=== PATIENT | female | born 1985 | race Caucasian/White ===

== ENCOUNTER 2017-07-04 13:38 | Outpatient (CLI) | payer OTHER ==
--- NOTE | 2017-07-04 15:08 | ULT ---
OB ULTRASOUND AND BIOPHYSICAL PROFILE: HISTORY: female with hypertension. TECHNIQUE: Multiplanar, mendiola scale, and color Doppler images were obtained in a transabdominal ultrasound. A biophysical profile was also performed. FINDINGS: There is a single live intrauterine with heart rate of 144 b.p.m. A survey was perfo rmed which was unremarkable. The head, intracranial structures, heart, stomach, kidneys, umbilical c ord, umbilical cord insertion, bladder, spine, face, and extremities were normal in appearance. Marybeth mated weight is 1562 gm. Estimated age of the fetus based off today's examination is 30 weeks 5 days. The following measurements were taken and dates based off these measurements are as follows. BPD 7.70 cm, 30 weeks 6 days HC 28.51 cm, 31 weeks 2 days AC 26.44 cm, 30 weeks 4 days FL 5.65 cm, 29 weeks 5 days The placenta is posterior in location. There is no evidence of placenta previa. The inferior tip of the placenta is approximately 3.7 cm from the internal os. The cervix is normal in length. LAYLA is 7.8 cm, which is normal. A biophysical profile was performed. The fetus scored 8 of 8, which is nor mal. IMPRESSION: 1. Single live intrauterine with estimated age of 30 weeks 5 days. 2. Normal biophysical profile. POS: [facility]
== END 2017-07-04 13:39 | disposition home or self-care (01) ==
LOC: ULT 13:38
PROVIDERS: ATTEND Family Medicine
DX: O13.2 Gestational [pregnancy-induced] hypertension without significant proteinuria, second trimester (principal); Z3A.30 30 weeks gestation of pregnancy
CPT/HCPCS: 76805; 76819

== ENCOUNTER 2017-07-11 08:55 | Day surgery (SDC) | payer OTHER ==
[2017-07-11 09:17] VITALS: BMI 38.9
[2017-07-11] MEDS ORDERED: Betamet Acet/Betamet Na Ph 30 MG/5 ML VIAL IM SCH (09:45)
== END 2017-07-11 10:10 | disposition home or self-care (01) ==
LOC: L&D/OP 08:55
PROVIDERS: ATTEND Family Medicine
DX: O10.919 Unspecified pre-existing hypertension complicating pregnancy, unspecified trimester (principal); Z3A.00 Weeks of gestation of pregnancy not specified; Z79.82 Long term (current) use of aspirin; Z79.899 Other long term (current) drug therapy; Z91.041 Radiographic dye allergy status
CPT/HCPCS: 96372

== ENCOUNTER 2017-07-12 09:01 | Day surgery (SDC) | payer OTHER ==
[2017-07-12 09:31] VITALS: BMI 38.9
[2017-07-12 09:32] VITALS: BP 144/77; TEMP 97.6
[2017-07-12] MEDS ORDERED: Betamet Acet/Betamet Na Ph 30 MG/5 ML VIAL IM SCH (10:30)
== END 2017-07-12 09:55 | disposition home or self-care (01) ==
LOC: L&D/OP 09:01
PROVIDERS: ATTEND Family Medicine
DX: Z34.80 Encounter for supervision of other normal pregnancy, unspecified trimester (principal); Z91.041 Radiographic dye allergy status

== ENCOUNTER 2017-08-23 10:35 | Inpatient (IN) | payer OTHER ==
[2017-08-24 06:30] VITALS: BMI 41.1
[2017-08-24] MEDS ORDERED: Promethazine HCl 25 MG/ML VIAL IM PRN (06:45)
[2017-08-24] MEDS ORDERED: Zolpidem Tartrate 5 MG TAB PO PRN (06:45)
[2017-08-24] MEDS ORDERED: Lidocaine 1% (PF) 30 ML VIAL SC PRN (06:45)
[2017-08-24] MEDS ORDERED: Acetaminophen/Codeine 30-300mg Tablet PO PRN ×2 (06:45→23:17)
[2017-08-24] MEDS ORDERED: Ibuprofen 800 MG TAB PO PRN (06:45)
[2017-08-24] MEDS ORDERED: Acetaminophen 500 MG TAB PO PRN (06:45)
[2017-08-24] MEDS ORDERED: LR / Pitocin 40 units/1000 ml 1,000 ML IV PRN (06:45)
[2017-08-24] MEDS ORDERED: Misoprostol 200 MCG TAB PR PRN (06:45)
[2017-08-24] MEDS ORDERED: HYDROcodone/Acetaminophen 5/325 mg Tablet PO PRN ×2 (06:45→23:17)
[2017-08-24] MEDS ORDERED: LR 500 ML/Oxytocin 10 units 500 ML IV SCH ×2 (06:45)
[2017-08-24] MEDS ORDERED: Ondansetron HCl/PF 4 MG/2 ML Vial IVP PRN ×2 (06:45→23:17)
[2017-08-24] MEDS: Lactated Ringer's 1,000 ML IV SCH ×4 (07:10→19:00)
[2017-08-24 07:24] LABS: Hemoglobin 11.5 g/dL (12.0-16.0); Mean Corpuscular HGB CONC 35.2 g/dL (32.0-36.0); Mean Corpuscular Hemoglobin 31.3 pg (27.0-31.0); Mean Corpuscular Volume 89.1 fl (81.0-99.0); Mean Platelet Volume 6.9 fL (7.4-10.4); Platelet Count 313 thou/uL (130-400); RBC Distribution Width 12.4 % (11.5-14.5); Red Blood Cell (RBC) Count 3.66 mill/uL (4.20-5.40)
[2017-08-24 07:58] LABS: Syphilis Antibody Nonreactive (Nonreactive); Syphilis Antibody Index 0.03 S/CO (<1.00 Non-Reactive)
[2017-08-24 07:59] LABS: HBSAg Index 0.14 S/CO (0-0.99); Hep B Surf Ag Non-Reactive S/CO (NonReactive)
[2017-08-24] MEDS ORDERED: DISCONTINUE ALL PREVIOUS NARCOTICS FS SCH (08:45)
[2017-08-24] MEDS ORDERED: Bupivacaine 0.5% 20 ML, Fentanyl 400 MCG in Sodium Chloride 0.9% 72 ML EPIDURAL SCH ×3 (08:45→17:45)
[2017-08-24] MEDS ORDERED: Naloxone HCl 0.4 mg/ml Vial IVP PRN ×2 (17:23)
[2017-08-24] MEDS ORDERED: Lactated Ringer's 500 ML IV PRN (17:23)
[2017-08-24] MEDS ORDERED: Eucerin (Mineral Oil/Petrolatum,White) 30 gm Jar TOP PRN (17:23)
[2017-08-24] MEDS ORDERED: ePHEDrine/0.9% NaCl/PF SYRINGE 50 mg/10 ml SLOW IVP PRN (17:23)
[2017-08-24] MEDS ORDERED: Fentanyl 4mcg/Marcaine 0.1% Cassette 100 ML EPIDURAL SCH (17:30)
[2017-08-24] MEDS ORDERED: Communication Order-Pharmacy FS SCH (17:30)
[2017-08-24] MEDS ORDERED: Lidocaine 1% (PF) 30 ML VIAL ONE (22:06)
[2017-08-24] MEDS ORDERED: Preparation H Ointment 28 GM TUBE PR PRN (23:17)
[2017-08-24] MEDS ORDERED: Lanolin Ointment 7 GM TUBE TOP PRN (23:17)
[2017-08-24] MEDS ORDERED: Milk Of Magnesia 30 ML UDCUP PO PRN (23:17)
[2017-08-24] MEDS ORDERED: diphenhydrAMINE 25 MG CAP PO PRN (23:17)
[2017-08-24] MEDS ORDERED: Bisacodyl 10 MG SUPP PR PRN (23:17)
[2017-08-24] MEDS ORDERED: LR / Pitocin 40 units/1000 ml 1,000 ML IV SCH (23:17)
[2017-08-24] MEDS ORDERED: Benzocaine/Menthol 20-0.5% 60 ML CAN TOP PRN (23:17)
[2017-08-24] MEDS ORDERED: Labetalol 100 MG TAB PO SCH (23:45)
[2017-08-25 05:47] LABS: Hemoglobin 11.6 g/dL (12.0-16.0); Mean Corpuscular Hemoglobin 30.7 pg (27.0-31.0); Mean Corpuscular Volume 87.7 fl (81.0-99.0); Mean Platelet Volume 6.7 fL (7.4-10.4); Platelet Count 307 thou/uL (130-400); RBC Distribution Width 12.5 % (11.5-14.5); Red Blood Cell (RBC) Count 3.79 mill/uL (4.20-5.40); White Blood Cell (WBC) Count 18.3 thou/uL (4.8-10.8)
[2017-08-25] MEDS: Ibuprofen 800 MG TAB PO SCH ×3 (05:58→21:26)
[2017-08-25] MEDS: Ferrous Sulfate 325 MG TAB PO SCH ×2 (09:05→18:11)
[2017-08-25] MEDS: Docusate Calcium (SURFAK) 240 MG CAP PO SCH ×2 (09:07→21:25)
[2017-08-25] MEDS: Labetalol 100 MG TAB PO SCH ×2 (09:07→21:25)
[2017-08-25] MEDS: Prenatal Vitamin 1 TAB PO SCH (09:07)
[2017-08-26] MEDS: Ibuprofen 800 MG TAB PO SCH (06:30)
[2017-08-26 08:44] VITALS: BP 137/77; TEMP 97.8
[2017-08-26] MEDS: Ferrous Sulfate 325 MG TAB PO SCH (10:01)
[2017-08-26] MEDS: Docusate Calcium (SURFAK) 240 MG CAP PO SCH (10:01)
[2017-08-26] MEDS: Labetalol 100 MG TAB PO SCH (10:02)
[2017-08-26] MEDS: Prenatal Vitamin 1 TAB PO SCH (10:02)
== END 2017-08-26 11:30 | disposition home or self-care (01) | DRG 774 ==
LOC: L&D 08-24 05:42 → 3SW 08-25 01:04
PROVIDERS: ADMIT Family Medicine; ATTEND Family Medicine
PROC: 10E0XZZ Delivery of Products of Conception, External Approach (ICD-10-PCS; principal; 2017-08-24)
PROC: 3E033VJ Introduction of Other Hormone into Peripheral Vein, Percutaneous Approach (ICD-10-PCS; 2017-08-24)
PROC: 10907ZC Drainage of Amniotic Fluid, Therapeutic from Products of Conception, Via Natural or Artificial Opening (ICD-10-PCS; 2017-08-24)
DX: O10.92 Unspecified pre-existing hypertension complicating childbirth (principal); Z37.0 Single live birth; Z3A.38 38 weeks gestation of pregnancy
CPT/HCPCS: 36415; 51702; 85027; 86780; 87340; C1726; J0595; J2001; J3010; J3490; J7050; J7120

== ENCOUNTER 2020-04-03 14:21 | Outpatient (CLI) | payer BC ==
--- NOTE | 2020-04-03 15:13 | MMO ---
Bilateral MAMMO Bilat Diag [facility]. CLINICAL HISTORY: Patient is 35 years old and is seen for diagnostic exam and lump or thickening in the upper-outer region of the left breast. The patient has the following family history of breast cancer: mother, malignant (generic). The patient has no personal history of cancer. VIEWS: The views performed were: bilateral craniocaudal with tomosynthesis; bilateral mediolateral oblique with tomosynthesis; and bilateral mediolateral with tomosynthesis. FILMS COMPARED: The present examination has been compared to a prior imaging study performed at [facility] on 04/03/2020. This study has been interpreted with the assistance of computer-aided detection. MAMMOGRAM FINDINGS: The breasts are heterogeneously dense, which could obscure a lesion on mammography. Finding 1: No mammographic or ultrasound finding to account for the palpable finding IN THEUPPER OUTER LT BREAST. Finding 2: There are benign appearing densities seen in both breasts. There are no suspicious masses, suspicious calcifications, or new areas of architectural distortion. IMPRESSION: THERE IS NO MAMMOGRAPHIC EVIDENCE OF MALIGNANCY. A ROUTINE FOLLOW-UP MAMMOGRAM AT AGE 42 IS RECOMMENDED. THE RESULTS OF THIS EXAM WERE SENT TO THE PATIENT. ACR BI-RADS Category 2 - Benign finding MAMMOGRAPHY NOTE: 1. A negative mammogram report should not delay a biopsy if a dominant of clinically suspicious mass is present. 2. Approximately 10% to 15% of breast cancers are not detected by mammography. 3. Adenosis and dense breasts may obscure an underlying neoplasm. Reported by: GUERRERO BLACKWOOD MD Electonically Signed: [id number]
--- NOTE | 2020-04-03 16:20 | ULT ---
EXAM: LEFT BREAST ULTRASOUND: 04/03/20 HISTORY: Patient presents with a palpable finding between the 12 and 1 o'clock position. There is some asymmetric echogenic glandular tissue in this region. No solid or cystic mass. This cor responds to some asymmetric tissue density on mammogram. IMPRESSION: BIRADS 2: Benign Finding(s) Routine annual screening mammography (for women over age 40). Asymmetric echogenic glandular tissue . No evidence for malignancy. Consider follow-up mammogram at age 35 to 40 depending upon risk factors. POS: OFF
== END 2020-04-03 14:22 | disposition home or self-care (01) ==
LOC: BICMAMMO 14:21
PROVIDERS: ATTEND Family Medicine
DX: N63.20 Unspecified lump in the left breast, unspecified quadrant (principal)
CPT/HCPCS: 77066; G0279

== ENCOUNTER 2021-03-21 17:52 | Emergency (ER) | payer BC ==
[2021-03-21] MEDS ORDERED: Amoxicillin/Potassium Clav 875 MG TAB ONE (18:59)
[2021-03-21] MEDS ORDERED: Dexamethasone 4 mg/ml Vial ONE (18:59)
== END 2021-03-21 19:26 | disposition home or self-care (01) ==
LOC: ERS 17:52
DX: K12.2 Cellulitis and abscess of mouth (principal); I10 Essential (primary) hypertension; Z79.899 Other long term (current) drug therapy
CPT/HCPCS: 87070; 87430; 99283; J1100

== ENCOUNTER 2021-10-28 09:26 | Emergency (ER) | payer BC ==
[2021-10-28 11:26] LABS: #Eosinphils 0.1 thou/uL (0.0-0.7); #Lymphocytes 1.7 thou/uL (1.20-3.40); #Monocytes 0.5 thou/uL (0.11-0.59); #Neutrophils 3.1 thou/uL (1.40-6.50); %Basophils 0.9 % (0.0-1.0); %Eosinophils 2.6 % (0.0-10.0); %Lymphocytes 31.2 % (21.0-51.0); %Monocytes 8.8 % (0.0-10.0); %Neutrophils 56.5 % (42.0-75.0); Hemoglobin 12.6 g/dL (12.0-16.0); Mean Corpuscular HGB CONC 34.1 g/dL (32.0-36.0); Mean Corpuscular Hemoglobin 31.4 pg (27.0-31.0); Mean Platelet Volume 6.9 fL (7.4-10.4); Platelet Count 262 thou/uL (130-400); RBC Distribution Width 12.2 % (11.5-14.5); Red Blood Cell (RBC) Count 4.03 mill/uL (4.20-5.40); White Blood Cell (WBC) Count 5.4 thou/uL (4.8-10.8)
[2021-10-28] MEDS ORDERED: Ketorolac Tromethamine 30 MG/ML VIAL ONE (11:30)
[2021-10-28] MEDS ORDERED: Ondansetron PF 4 MG/2 ML Vial ONE (11:30)
[2021-10-28] MEDS ORDERED: Fentanyl 100 MCG/2 ML VIAL ONE (11:32)
[2021-10-28 11:40] LABS: BHCG - Serum Negative (NEGATIVE); Pregs Control Background? CLEAR/WHITE (CLR/WHITE); Pregs Control Bar Appear? YES (CONTROL BAR)
[2021-10-28 11:47] LABS: ALT (SGPT) 10 U/L (8-55); AST (SGOT) 14 U/L (5-34); Albumin 3.7 g/dL (3.5-5.0); Alkaline Phosphatase 42 U/L (40-110); Anion Gap 12 mmol/L (10-20); BUN (Urea Nitrogen) 9 mg/dL (7.0-18.7); Bilirubin, Total 1.1 mg/dL (0.2-1.2); CK (CPK) 96 U/L (29-168); Calc. Creatinine Clearance 0 mL/min (70-130); Calcium 9.1 mg/dL (7.8-10.44); Carbon Dioxide 25 mmol/L (22-29); Chloride 107 mmol/L (98-107); Globulin 2.5 g/dL (2.4-3.5); Glucose 87 mg/dL (70-105); Lipase 22 U/L (8-78); Potassium 3.7 mmol/L (3.5-5.1); Protein, Total 6.2 g/dL (6.0-8.3); Sodium 140 mmol/L (136-145)
[2021-10-28 13:09] LABS: Bilirubin Negative (Negative); Blood, Urine Negative (Negative); Clarity Clear (Clear); Glucose, Urine (Dipstick) Normal (Negative); Ketone, Urine 20 mg/dL (Negative); Leukocyte Negative Leu/uL (Negative); Nitrite Negative (Negative); Protein, Urine (Dipstick) Negative (Neg-Trace); Specific Gravity, Urine 1.009 (1.002-1.036); Urobilinogen Normal mg/dL (Less than 2); pH, Urine 6.5 (5.0-9.0)
[2021-10-29 23:25] LABS: Chlamydia by PCR Not Detected (NotDetected); GC by PCR Not Detected (NotDetected)
== END 2021-10-28 13:20 | disposition home or self-care (01) ==
LOC: ERS 09:26
DX: N30.10 Interstitial cystitis (chronic) without hematuria (principal); I10 Essential (primary) hypertension; Z79.899 Other long term (current) drug therapy
CPT/HCPCS: 36415; 76856; 80053; 81003; 82550; 83690; 84703; 85025; 87480; 87491; 87510; 87591; 87660; 93976; 96374; 96375; J1885; J2405; J3010

== ENCOUNTER 2023-03-20 22:16 | Emergency (ER) | payer BC, SELFPAY ==
[2023-03-20] MEDS ORDERED: Ibuprofen 200 MG TAB ONE (22:45)
[2023-03-20] MEDS ORDERED: Cyclobenzaprine 10 MG TAB ONE (22:45)
== END 2023-03-21 00:07 | disposition home or self-care (01) ==
LOC: ERS 22:16
DX: M54.16 Radiculopathy, lumbar region (principal); I10 Essential (primary) hypertension
CPT/HCPCS: 72100

== ENCOUNTER 2024-05-11 09:16 | Outpatient (CLI) | payer BC, MEDICARE | END 2024-05-11 09:17 | disposition home or self-care (01) | LOC: ULT 09:16 | PROVIDERS: ATTEND Family Medicine | DX: R10.84 Generalized abdominal pain (principal) | CPT/HCPCS: 76700 ==